=== PATIENT | female | born 1980 | race Caucasian/White ===

== ENCOUNTER 2017-04-11 22:04 | Emergency (ER) | payer BC, MEDICARE ==
[~2017-04-11] VITALS: Ht 160 cm; Wt 99.0 kg
[~2017-04-11 22:04] MED LIST: ALBU8I INH; CYCL-36 PO; FEXO180 PO; LORA-392 PO; LORTA5 PO; OMEP20TA PO; OXCA300 PO; PROM25TA5 PO; PROZ40CA PO; WELL150T PO
[2017-04-11 22:07] VITALS: BP 165/77; PULSE 111; RESP 16; TEMP 98.5; O2SAT 100
[2017-04-11] MEDS ORDERED: MELO-1 PO (22:43)
[2017-04-11] MEDS ORDERED: CYMB60CA PO (22:43)
[2017-04-11] MEDS ORDERED: DIVA500T PO (22:43)
[2017-04-11] MEDS ORDERED: OMEP20TA PO (22:43)
[2017-04-11] MEDS ORDERED: MORPHINE SULFATE 4 MG/ML INJ IV PUSH ONE (22:45)
[2017-04-11] MEDS ORDERED: KETOROLAC TROMETHAMINE 30 MG/ML (IVP) VIAL IVP ONE (22:45)
[2017-04-11] MEDS ORDERED: ONDANSETRON HCL 4 MG/2 ML VIAL IVP ONE (22:45)
--- NOTE | 2017-04-11 22:50 | PD ---
HPI Chief Complaint: Abdominal Pain Time Seen by Provider: 22:35 Travel History International Travel<30 days: No Contact w/Intl Traveler<30days: No Traveled to known affect area: No History of Present Illness HPI 36-year-old female complains of abdominal pain and left flank pain. Patient states that the pain started 5 days ago. Patient states that the pain was intermittent cramping pain and sharp pain and is worse today. Patient states that the pain radiates to the left side of the abdomen. Patient states that she has nausea with the pain. Patient denies any vomiting or diarrhea. Patient denies any dysuria or frequency. Patient denies any vaginal discharge. Patient states that her menstruation period started early this time. Patient has history of irregular menstruation period in the past. Patient status post cholecystectomy 2 years ago. Patient has history kidney stone 8 years ago. On a scale of 1-10 the pain is a 6 PFSH Past Medical History Asthma: Yes Anxiety: Yes Depression: Yes Cancer: No Cardiovascular Problems: No Diabetes: No Endocrine: No Fibromyalgia: Yes Gastrointestinal Disorders: Yes (GERD, DIVERTICULOSIS) Genitourinary: No Hepatitis: No Hiatal Hernia: No Immune Disorder: No Musculoskeletal: Yes (ANKYLOSINGSPONDILITIS) Neurologic: Yes (2 HERNIATED DISC) Psychiatric: Yes (DEPRESSION, ANXIETY, BIPOLAR) Reproductive: Yes (PCOS) Respiratory: Yes (ASTHMA) Thyroid Disease: No Tetanus Vaccination: > 5 Years Influenza Vaccination: No ?: Not LMP: 04/08/17 Past Surgical History Abdominal Surgery: No AICD: No Cardiac Surgery: No Ear Surgery: No Endocrine Surgery: No Eye Surgery: No Genitourinary Surgery: No Gynecologic Surgery: No Joint Replacement: No Oral Surgery: Yes (WISDOM TEETH REMOVED) Pacemaker: No Thoracic Surgery: No Social History Alcohol Use: Yes (OCC) Tobacco Use: No Substance Use: No Allergies-Medications (Allergen,Severity, Reaction): Coded Allergies: No Known Allergies (Verified , 04/11/17) Reported Meds & Prescriptions Reported Meds & Active Scripts Active Reported Lorazepam 1 Mg Tab 1 Mg PO BID PRN Cymbalta DR (Duloxetine HCl) 60 Mg Capdr 60 Mg PO DAILY Omeprazole 20 Mg Tab 20 Mg PO DAILY Divalproex DR (Divalproex Sodium) 500 Mg Tabdr 750 Mg PO DAILY Meloxicam 15 Mg Tab 15 Mg PO DAILY Review of Systems General / Constitutional: No: Fever Eyes: No: Visual changes HENT: No: Headaches Cardiovascular: No: Chest Pain or Discomfort Respiratory: No: Shortness of Breath Gastrointestinal: Positive: Nausea, Abdominal Pain Genitourinary: No: Dysuria Musculoskeletal: No: Pain Skin: No Rash Neurologic: No: Weakness Psychiatric: No: Depression Endocrine: No: Polydipsia Hematologic/Lymphatic: No: Easy Bruising Physical Exam Narrative GENERAL: Well-nourished, well-developed patient. SKIN: Focused skin assessment warm/dry. HEAD: Normocephalic. EYES: No scleral icterus. No injection or drainage. NECK: Supple, trachea midline. No JVD or lymphadenopathy. CARDIOVASCULAR: Regular rate and rhythm without murmurs, gallops, or rubs. RESPIRATORY: Breath sounds equal bilaterally. No accessory muscle use. GASTROINTESTINAL: Abdomen soft, nondistended. Patient has mild to moderate tenderness on palpation left upper quadrant of the abdomen. No rebound tenderness. No mass. MUSCULOSKELETAL: No cyanosis, or edema. BACK: Nontender without obvious deformity. No CVA tenderness. Neurologic exam normal. Data Data Last Documented VS Vital Signs Date Time Temp Pulse Resp B/P Pulse Ox O2 Delivery O2 Flow Rate FiO2 04/12/17 01:02 18 04/12/17 00:59 100 Room Air 04/11/17 22:07 98.5 111 165/77 Orders Complete Blood Count With Diff (04/11/17 22:40) Comprehensive Metabolic Panel (04/11/17 22:40) Urinalysis - C+S If Indicated (04/11/17 22:40) Ct Abd/Pel W/O Iv Contrast (04/11/17 22:40) Iv Access Insert/Monitor (04/11/17 22:40) Ecg Monitoring (04/11/17 22:40) Oximetry (04/11/17 22:40) Morphine Inj (Morphine Inj) (04/11/17 22:45) Ondansetron Inj (Zofran Inj) (04/11/17 22:45) Ketorolac Inj (Toradol Inj) (04/11/17 22:45) Ed Urine Pregnancytest Poc (04/11/17 22:45) Labs Laboratory Tests Test 04/11/17 04/12/17 23:05 02:40 White Blood Count 8.4 TH/MM3 Red Blood Count 4.30 MIL/MM3 Hemoglobin 9.9 GM/DL Hematocrit 31.2 % Mean Corpuscular Volume 72.6 FL Mean Corpuscular Hemoglobin 23.0 PG Mean Corpuscular Hemoglobin 31.6 % Concent Red Cell Distribution Width 15.9 % Platelet Count 337 TH/MM3 Mean Platelet Volume 8.7 FL Neutrophils (%) (Auto) 62.6 % Lymphocytes (%) (Auto) 26.8 % Monocytes (%) (Auto) 8.9 % Eosinophils (%) (Auto) 1.2 % Basophils (%) (Auto) 0.5 % Neutrophils # (Auto) 5.2 TH/MM3 Lymphocytes # (Auto) 2.2 TH/MM3 Monocytes # (Auto) 0.7 TH/MM3 Eosinophils # (Auto) 0.1 TH/MM3 Basophils # (Auto) 0.0 TH/MM3 CBC Comment DIFF FINAL Differential Comment Sodium Level 141 MEQ/L Potassium Level 3.9 MEQ/L Chloride Level 103 MEQ/L Carbon Dioxide Level 29.3 MEQ/L Anion Gap 9 MEQ/L Blood Urea Nitrogen 10 MG/DL Creatinine 0.85 MG/DL Estimat Glomerular Filtration 75 ML/MIN Rate Random Glucose 89 MG/DL Calcium Level 8.4 MG/DL Total Bilirubin 0.2 MG/DL Aspartate Amino Transf 11 U/L (AST/SGOT) Alanine Aminotransferase 18 U/L (ALT/SGPT) Alkaline Phosphatase 113 U/L Total Protein 7.3 GM/DL Albumin 3.1 GM/DL Urine Color YELLOW Urine Turbidity HAZY Urine pH 6.5 Urine Specific [place] 1.013 Urine Protein TRACE mg/dL Urine Glucose (UA) NEG mg/dL Urine Ketones NEG mg/dL Urine Occult Blood LARGE Urine Nitrite NEG Urine Bilirubin NEG Urine Urobilinogen LESS THAN 2.0 MG/DL Urine Leukocyte Esterase NEG Urine RBC 1 /hpf Urine WBC 2 /hpf Urine Squamous Epithelial 4 /hpf Cells Urine Bacteria OCC /hpf Urine Mucus FEW /lpf Microscopic Urinalysis Comment CULT NOT INDICATED MDM Medical Decision Making Medical Screen Exam Complete: Yes Emergency Medical Condition: Yes Interpretation(s) Last Impressions Abdomen/Pelvis CT 04/11/17 2240 Signed Impressions: Service Date/Time: Friday, April 12, 2017 01:19 - CONCLUSION: Essentially unremarkable study except for tiny amount of fluid in the cul-de-sac and stool throughout the colon. Silvia Moore MD 2:11 AM. CBC within normal limit. CMP within normal limit. 3:09 AM. UA is negative. Differential Diagnosis Differential diagnosis including musculoskeletal, nephrolithiasis, pyelonephritis, colitis, PUD, pancreatitis, Narrative Course 36-year-old female complains of left flank pain and left upper quadrant abdominal pain. Toradol 30 mg IV. Morphine 2 mg IV. Zofran 4 mg IV. Diagnosis Primary Impression: Left flank pain Patient Instructions: General Instructions Additional Instructions: Take medication as directed for pain. Follow-up with personal physician. Return if persistent problem or worse. Med/Other Pt SpecificInfo: Prescription(s) given Scripts Dicyclomine (Bentyl)10 Mg Cap10 Mg PO TID PRN (PAIN SCALE 1 TO 10) #21 CAP Ref 0 Prov:Alex Bello MD 04/12/17 Sucralfate (Carafate)1 Gm Tab1 Gm PO QID #120 TAB Ref 0 On empty stomach Prov:Alex Bello MD 04/12/17 Disposition: 01 DISCHARGE HOME Condition: Stable Alex Bello MD Apr 11, 2017 22:50
[2017-04-11] MEDS ORDERED: LORA1TAB12 PO (23:30)
[2017-04-11 23:50] LABS: AUTOMATED NEUTROPHIL # 5.2 TH/MM3 (1.8-7.7); BASOPHIL % 0.5 % (0.0-2.0); EOSINOPHIL # 0.1 TH/MM3 (0-0.4); EOSINOPHIL % 1.2 % (0.0-4.0); HEMATOCRIT 31.2 % (35.0-46.0); HEMO FLAGS DIFF FINAL; LYMPH % 26.8 % (9.0-44.0); LYMPHOCYTE # 2.2 TH/MM3 (1.0-4.8); MEAN CELL VOLUME 72.6 FL (80.0-100.0); MEAN CORPUSCULAR HGB CONC 31.6 % (32.0-36.0); MONO % 8.9 % (0.0-8.0); NEUT % 62.6 % (16.0-70.0); PLATELET COUNT 337 TH/MM3 (150-450); RED CELL DISTRIBUTION WIDTH 15.9 % (11.6-17.2); WHITE BLOOD COUNT 8.4 TH/MM3 (4.0-11.0)
[2017-04-12 00:28] LABS: ALT (GPT) 18 U/L (10-53); ANION GAP 9 MEQ/L (5-15); AST (GOT) 11 U/L (15-37); BICARBONATE 29.3 MEQ/L (21.0-32.0); BLOOD UREA NITROGEN 10 MG/DL (7-18); CHLORIDE 103 MEQ/L (98-107); GLOMERULAR FILTRATION RATE 75 ML/MIN (>89); POTASSIUM 3.9 MEQ/L (3.5-5.1); SODIUM (NA) 141 MEQ/L (136-145)
[2017-04-12 00:31] LABS: ALKALINE PHOSPHATASE 113 U/L (45-117); TOTAL BILIRUBIN ADULT 0.2 MG/DL (0.2-1.0)
[2017-04-12 00:59] VITALS: O2SAT 100
--- NOTE | 2017-04-12 01:33 | RADRPT ---
EXAM DATE/TIME: 04/12/2017 01:19 [place] COMPARISON: No previous studies available for comparison. INDICATIONS : Left flank pain with nausea past 5 days. ORAL CONTRAST: No oral contrast ingested. RADIATION DOSE: 30.70 CTDIvol (mGy) MEDICAL HISTORY : Gastroesophageal reflux disease. Renal calculi. Diverticulosis. SURGICAL HISTORY : None. ENCOUNTER: Initial ACUITY: 4 - 6 days PAIN SCALE: 6/10 LOCATION: Left flank TECHNIQUE: Volumetric scanning of the abdomen and pelvis was performed. Using automated exposure control and adjustment of the mA and/or kV according to patient size, radiation dose was kept as low as reasonably achievable to obtain optimal diagnostic quality images. FINDINGS: CT Abdomen: The liver, spleen, pancreas, kidneys, adrenals are unremarkable. There is no evidence for any appreciable pathological adenopathy, free fluid, or bowel obstruction. There is evidence for pr ior cholecystectomy. There is no evidence for any stones in the kidneys or the course of the ureters on either side. There is no hydronephrosis. Slight degree of somewhat linear irregular opacity is see n in the left lung base mostly consistent with scarring. CT pelvis: There is no evidence for mass, abscess formation, or any significant adenopathy within the pelvis. There is moderate amount of stool throughout the colon. Tiny amount of fluid is present in t he cul-de-sac. CONCLUSION: Essentially unremarkable study except for tiny amount of fluid in the cul-de-sac and stool throughout the colon. Silvia Moore MD on April 12, 2017 at 1:28 Board Certified Radiologist. This report was verified electronically.
[2017-04-12 02:55] LABS: BACTERIA, URINE OCC /hpf; BLOOD, URINE LARGE (NEG); COMMENT (UR) CULT NOT INDICATED; CULTURE IF INDICATED CULT NOT INDICATED; GLUCOSE,URINE NEG (NEG); KETONE, URINE NEG (NEG); MUCUS URINE FEW /lpf (OCC); NITRITE,URINE NEG (NEG); PH, URINE 6.5 (5.0-8.5); SQUAMOUS EPITHELIAL CELL URINE 4 /hpf (0-5); URINE COLOR YELLOW (YELLW/STRAW)
[2017-04-12 03:13] VITALS: BP 143/63; PULSE 90; RESP 18; TEMP 98.1; O2SAT 100
[2017-04-12] MEDS ORDERED: CARA1TAB6 PO (03:14)
[2017-04-12] MEDS ORDERED: DICY10 PO (03:14)
== END 2017-04-12 03:31 | disposition home or self-care (01) ==
LOC: NEPE 22:04
DX: R10.9 Unspecified abdominal pain (principal)
CPT/HCPCS: 74176; 80053; 81001; 84703; 85025; 96374; 96375; 99285; J1885; J2270; J2405

== ENCOUNTER 2018-04-05 22:25 | Inpatient (IN) | payer MEDICARE ==
[~2018-04-05] VITALS: Ht 161.3 cm; Wt 119.6 kg
[~2018-04-05 22:25] MED LIST changes: -ALBU8I INH; +CARA1TAB6 PO; -CYCL-36 PO; +CYMB60CA PO; +DICY10 PO; +DIVA500T PO; -FEXO180 PO; -LORA-392 PO; +LORA1TAB12 PO; -LORTA5 PO; +MELO15TA20 PO; -OMEP20TA PO; +OMEP20TA93 PO; -OXCA300 PO; -PROM25TA5 PO; -PROZ40CA PO; -WELL150T PO
[2018-04-05 22:31] VITALS: BP 134/59; PULSE 114; RESP 15; TEMP 98.6; O2SAT 97
[2018-04-05] MEDS ORDERED: SODIUM CHLOR 0.9% 1000 ML INJ 1,000 ML IV ONE (22:34)
[2018-04-05] MEDS ORDERED: CLON.5 PO (22:37)
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
[2018-04-05] MEDS ORDERED: SODIUM CHLORIDE 0.9% FLUSH 10 ML FLUSH IVF PRN (22:45)
--- NOTE | 2018-04-05 22:51 | RADRPT ---
EXAM DATE: 04/05/2018 10:49 PM EDT AGE/SEX: 37 years / Female INDICATIONS: SOB. Overdose. CLINICAL DATA: This is the patient's initial encounter. Patient reports that signs and symptoms have been present for 1 day and indicates a pain score of 0/10. MEDICAL/SURGICAL HISTORY: None. None. COMPARISON: [facility] – [place], [place], [place]ST SINGLE [place], 01/17/2015. . FINDINGS: Lungs are hypoaerated but otherwise clear. Heart and mediastinal structures are unremarkable. Osseous structures are intact. CONCLUSION: No evidence of acute cardiopulmonary process. Electronically signed by: Murtaza Mcdonald MD 04/05/2018 10:50 PM EDT
[2018-04-05 22:56] VITALS: O2SAT 100
[2018-04-05 23:00] LABS: AUTOMATED NEUTROPHIL # 5.9 TH/MM3 (1.8-7.7); BASOPHIL # 0.1 TH/MM3 (0-0.2); BASOPHIL % 0.5 % (0.0-2.0); EOSINOPHIL # 0.2 TH/MM3 (0-0.4); EOSINOPHIL % 1.5 % (0.0-4.0); HEMATOCRIT 35.8 % (35.0-46.0); HEMOGLOBIN 11.7 GM/DL (11.6-15.3); LYMPH % 35.2 % (9.0-44.0); LYMPHOCYTE # 3.9 TH/MM3 (1.0-4.8); MEAN CELL VOLUME 78.9 FL (80.0-100.0); MEAN CORPUSCULAR HEMOGLOBIN 25.9 PG (27.0-34.0); MEAN CORPUSCULAR HGB CONC 32.8 % (32.0-36.0); MEAN PLATELET VOLUME 8.4 FL (7.0-11.0); MONO % 8.9 % (0.0-8.0); NEUT % 53.9 % (16.0-70.0); PLATELET COUNT 369 TH/MM3 (150-450); RED BLOOD COUNT 4.53 MIL/MM3 (4.00-5.30); RED CELL DISTRIBUTION WIDTH 15.5 % (11.6-17.2)
[2018-04-05] MEDS ORDERED: ONDANSETRON HCL 4 MG/2 ML VIAL IV ONE (23:00)
[2018-04-05] MEDS ORDERED: ONDANSETRON ODT 4 MG TAB PO ONE (23:00)
[2018-04-05 23:17] LABS: INTERNATIONAL NORMALIZED RATIO 0.9 RATIO; PROTHROMBIN TIME - PATIENT 9.5 SEC (9.8-11.6)
[2018-04-05] MEDS ORDERED: PROCHLORPERAZINE INJ 10 MG/2 ML VIAL IV PUSH ONE (23:30)
[2018-04-05 23:34] LABS: ACETAMINOPHEN LESS THAN 2.0 MCG/ML (10.0-30.0); ALBUMIN 3.2 GM/DL (3.4-5.0); ALKALINE PHOSPHATASE 114 U/L (45-117); ALT (GPT) 30 U/L (10-53); AST (GOT) 20 U/L (15-37); BICARBONATE 25.3 MEQ/L (21.0-32.0); BLOOD UREA NITROGEN 7 MG/DL (7-18); CALCIUM 8.4 MG/DL (8.5-10.1); CHLORIDE 107 MEQ/L (98-107); CREATININE 0.87 MG/DL (0.50-1.00); GLOMERULAR FILTRATION RATE 73 ML/MIN (>89); GLUCOSE,RANDOM 137 MG/DL (74-106); SODIUM (NA) 143 MEQ/L (136-145); TOTAL BILIRUBIN ADULT 0.1 MG/DL (0.2-1.0); TOTAL PROTEIN 7.5 GM/DL (6.4-8.2)
[2018-04-06] VITALS (7 sets, daily range): BP systolic 100–144; BP diastolic 51–76; PULSE 62–110; RESP 16–19; TEMP 97.8–98.2; O2SAT 96–100
[2018-04-06 00:31] LABS: BILIRUBIN, URINE NEG (NEG); BLOOD, URINE NEG (NEG); GLUCOSE,URINE NEG (NEG); KETONE, URINE TRACE mg/dL (NEG); MUCUS URINE FEW /lpf (OCC); NITRITE,URINE NEG (NEG); PH, URINE 5.5 (5.0-8.5); SQUAMOUS EPITHELIAL CELL URINE 2 /hpf (0-5); URINE COLOR YELLOW (YELLW/STRAW); URINE LEUKOCYTE ESTERASE MOD (NEG)
[2018-04-06] MEDS ORDERED: SODIUM CHLOR 0.9% 1000 ML INJ 1,000 ML IV ONE (01:15)
[2018-04-06] MEDS ORDERED: MAGNESIUM HYDROXIDE SUSP 30 ML CUP PO PRN (08:00)
[2018-04-06] MEDS ORDERED: LORazepam 2 MG/ML VIAL IM PRN (08:00)
[2018-04-06] MEDS ORDERED: ALUMINUM/MAGNESIUM/SIMETH 30 ML CUP PO PRN (08:00)
[2018-04-06] MEDS ORDERED: BENZTROPINE MESYLATE 2 MG/2 ML VIAL IM PRN (08:00)
[2018-04-06] MEDS ORDERED: NICOTINE 21 MG/24 HR PATCH T-DERMAL PRN (08:00)
[2018-04-06] MEDS ORDERED: BENZTROPINE MESYLATE 1 MG TAB PO PRN (08:00)
[2018-04-06] MEDS ORDERED: ACETAMINOPHEN 325 MG TAB PO PRN (08:00)
[2018-04-06] MEDS ORDERED: LORazepam 1 MG TAB PO PRN (08:00)
[2018-04-06] MEDS ORDERED: diphenhydrAMINE HCL 50 MG CAP PO PRN (08:00)
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
--- NOTE | 2018-04-06 08:06 | EKG ---
Date Performed: 04/05/2018 Time Performed: 22:39:26 PTAGE: 37 years EKG: SINUS TACHYCARDIA NONSPECIFIC ST & T-WAVE ABNORMALITY ABNORMAL RHYTHM ECG PREVIOUS TRACING : 01/17/2015 08.03 No significant change from previous tracing noted. DOCTOR: Eugene Lazcano Interpretating Date/Time 04/06/2018 08:04:39
[2018-04-06] MEDS: DULoxetine HCl DR 60 MG CAP PO SCH (08:55)
[2018-04-06] MEDS: DIVALPROEX SODIUM E.R. 500 MG TAB PO SCH (08:56)
[2018-04-06] MEDS ORDERED: PANTOPRAZOLE SOD 20 MG DELAYED RELEASE TAB PO SCH (09:00)
[2018-04-06] MEDS ORDERED: FOLIC ACID 1 MG TAB PO ONE (09:30)
[2018-04-06] MEDS ORDERED: MULTIVITAMIN TAB PO ONE (09:30)
[2018-04-06] MEDS ORDERED: cloNIDine HCL 0.1 MG TAB PO PRN (09:30)
[2018-04-06] MEDS ORDERED: THIAMINE HCL 100 MG TAB PO ONE (09:30)
[2018-04-06] MEDS ORDERED: PANTOPRAZOLE SOD 20 MG DELAYED RELEASE TAB PO ONE (09:30)
--- NOTE | 2018-04-06 10:42 | PD.CONS ---
HPI Service [facility] Hospitalists Consult Requested By Psychiatry Reason for Consult Help with medical management of overdose Primary Care Physician Ang Booth M.D. Diagnoses: History of Present Illness We have been asked to consult on this 37-year-old female patient who presented to [facility] emergency department after taking 6 tablets of 0.5 mg clonazepam this evening as well as drinking a bottle of rum. Patient was Lawson acted as she wrote a note about how she would want to be cremated if she . Patient has a history of bipolar disorder. She has been having issues with her sister and has history of attempted suicide in the past and bipolar disorder. Patient was noted to have alcohol in her system as well as clonazepam Patient has been Lawson acted here Review of Systems Constitutional: DENIES: Diaphoretic episodes, Fatigue, Fever, Weight gain, Weight loss, Chills, Dizziness, Change in appetite, Night Sweats Endocrine: DENIES: Abnorml menstrual pattern, Heat/cold intolerance, Polydipsia , Polyuria, Polyphagia Eyes: DENIES: Blurred vision, Diplopia, Eye inflammation, Eye pain, Vision loss , Photosensitivity, Double Vision Ears, nose, mouth, throat: DENIES: Tinnitus, Hearing loss, Vertigo, Nasal discharge, Oral lesions, Throat pain, Hoarseness, Ear Pain, Running Nose, Epistaxis, Sinus Pain, Toothache, Odynophagia Respiratory: DENIES: Apneas, Cough, Snoring, Wheezing, Hemoptysis, Sputum production, Shortness of breath Cardiovascular: DENIES: Chest pain, Palpitations, Syncope, Dyspnea on Exertion , PND, Lower Extremity Edema, Orthopnea, Claudication Gastrointestinal: DENIES: Abdominal pain, Black stools, Bloody stools, Constipation, Diarrhea, Nausea, Vomiting, Difficulty Swallowing Genitourinary: DENIES: Abnormal vaginal bleeding, Dysmenorrhea, Dyspareunia, Sexual dysfunction, Urinary frequency, Urinary incontinence, Urgency, Hematuria Musculoskeletal: DENIES: Joint pain, Muscle aches, Stiffness, Joint Swelling, Back pain, Neck pain Integumentary: DENIES: Abnormal pigmentation, Pruritus, Rash, Nail changes, Breast masses, Breast skin changes Hematologic/lymphatic: DENIES: Bruising, Lymphadenopathy Immunologic/allergic: DENIES: Eczema, Urticaria Neurologic: DENIES: Abnormal gait, Headache, Localized weakness, Paresthesias, Seizures, Speech Problems, Tremor, Poor Balance Psychiatric: COMPLAINS OF: Anxiety, Mood changes, Depression, Suicidal Ideation , DENIES: Confusion, Hallucinations, Agitation Except as stated in HPI: all other systems reviewed are Neg Past Family Social History Allergies: Coded Allergies: No Known Allergies (Verified Allergy, Unknown, 04/06/18) Past Medical History Bipolar disorder, depression, anxiety GERD Diverticulosis PCOS Fibromyalgia Morbid obesity Ankylosing spondylitis Chronic back pain Osteoarthritis Asthma Past Surgical History Cholecystectomy [place] teeth removal Reported Medications Reported Meds & Active Scripts Active Reported Klonopin (Clonazepam) 0.5 Mg Tab 0.5 Mg PO BID Active Ordered Medications Current Medications Sodium Chloride (NS Flush) 2 ml UNSCH PRN IVF FLUSH AFTER USING IV ACCESS; Start 04/05/18 at 22:45 Sodium Chloride 1,000 ml @ 1,000 mls/hr Q1H ONCE IV Last administered on at 23:04; Start 04/05/18 at 22:34; Stop 04/05/18 at 23:33; Status DC Ondansetron HCl (Zofran Inj) 4 mg ONCE ONCE IV ; Start 04/05/18 at 23:00; Stop 04/05/18 at 23:00; Status DC Ondansetron HCl (Zofran Odt) 4 mg ONCE ONCE PO Last administered on at 23:03; Start 04/05/18 at 23:00; Stop 04/05/18 at 23:01; Status DC Prochlorperazine Edisylate (Compazine Inj) 5 mg ONCE ONCE IV PUSH Last administered on 04/05/18at 23:27; Start 04/05/18 at 23:30; Stop 04/05/18 at 23:31 ; Status DC Sodium Chloride 1,000 ml @ 1,000 mls/hr Q1H ONCE IV Last administered on at 01:34; Start 04/06/18 at 01:15; Stop 04/06/18 at 02:14; Status DC Lorazepam (Ativan) 0.5 mg Q6H PRN PO MODERATE TO SEVERE ANXIETY; Start at 08:00 Lorazepam (Ativan Inj) 0.5 mg Q6H PRN IM MODERATE TO SEVERE ANXIETY; Start at 08:00 Diphenhydramine HCl (Benadryl) 50 mg HS PRN PO INSOMNIA; Start 04/06/18 at 08: 00 Acetaminophen (Tylenol) 650 mg Q4H PRN PO Pain 1-5 or Temp >101F; Start at 08:00 Magnesium Hydroxide (Milk Of Magnesia Liq) 30 ml DAILY PRN PO CONSTIPATION; Start 04/06/18 at 08:00 Al Hydrox/Mg Hydrox/Simethicone (Mag-Al Plus Susp Liq) 30 ml Q6H PRN PO DYSPEPSIA; Start 04/06/18 at 08:00 Nicotine (Habitrol 21 Mg Patch.24 Hr) 1 patch DAILY PRN T-DERMAL Nicotine craving; Start 04/06/18 at 08:00 Benztropine Mesylate (Cogentin) 1 mg Q12H PRN PO EXTRA PYRAMIDAL SYMPTOMS; Start 04/06/18 at 08:00 Benztropine Mesylate (Cogentin Inj) 1 mg Q12H PRN IM EXTRA PYRAMIDAL SYMPTOMS; Start 04/06/18 at 08:00 Divalproex Sodium (Depakote Er) 1,500 mg DAILY PO Last administered on at 08:56; Start 04/06/18 at 09:00 Duloxetine HCl (Cymbalta Dr) 120 mg DAILY PO Last administered on 04/06/18at 08: 55; Start 04/06/18 at 09:00 Pantoprazole Sodium (Protonix) 20 mg DAILY PO Last administered on 04/06/18at 08 :55; Start 04/06/18 at 09:00; Stop 04/06/18 at 09:22; Status DC Pantoprazole Sodium (Protonix) 20 mg ONCE ONCE PO Last administered on at 10:17; Start 04/06/18 at 09:30; Stop 04/06/18 at 09:31; Status DC Pantoprazole Sodium (Protonix) 40 mg DAILY PO ; Start 04/07/18 at 09:00 Multivitamins (Theragran) 1 tab ONCE ONCE PO Last administered on 04/06/18at 10 :16; Start 04/06/18 at 09:30; Stop 04/06/18 at 09:31; Status DC Multivitamins (Theragran) 1 tab DAILY PO ; Start 04/07/18 at 09:00 Thiamine HCl (Vitamin B1) 100 mg ONCE ONCE PO Last administered on 04/06/18at 10:16; Start 04/06/18 at 09:30; Stop 04/06/18 at 09:31; Status DC Thiamine HCl (Vitamin B1) 100 mg DAILY PO ; Start 04/07/18 at 09:00 Folic Acid (Folate) 1 mg ONCE ONCE PO Last administered on 04/06/18at 10:17; Start 04/06/18 at 09:30; Stop 04/06/18 at 09:31; Status DC Folic Acid (Folate) 1 mg DAILY PO ; Start 04/07/18 at 09:00 Clonidine (Catapres) 0.1 mg Q4H PRN PO SBP>160, DBP>90; Start 04/06/18 at 09:30 Family History Sister with history of bipolar Social History Denies any tobacco Denies any illicits Denies any alcohol other than what she had last night Physical Exam Vital Signs Vital Signs Date Time Temp Pulse Resp B/P (MAP) Pulse Ox O2 Delivery O2 Flow Rate FiO2 04/06/18 09:07 04/06/18 05:41 62 16 111/76 (88) 100 Room Air 04/06/18 02:55 92 16 101/51 (68) 98 Nasal Cannula 2.00 04/06/18 01:26 19 98 BiPAP 04/06/18 01:22 67 16 100/51 (67) 98 Nasal Cannula 2.00 04/06/18 00:23 110 16 106/71 (83) 96 Nasal Cannula 2.00 04/05/18 22:56 100 Nasal Cannula 2.00 04/05/18 22:31 98.6 114 15 134/59 (84) 97 Physical Exam GENERAL: This is a well-nourished, well-developed patient, in no apparent distress. SKIN: No rashes, ecchymoses or lesions. Cool and dry. HEAD: Atraumatic. Normocephalic. No temporal or scalp tenderness. EYES: Pupils equal round and reactive. Extraocular motions intact. No scleral icterus. No injection or drainage. ENT: Nose without bleeding, purulent drainage or septal hematoma. Throat without erythema, tonsillar hypertrophy or exudate. Uvula midline. Airway patent. NECK: Trachea midline. No JVD or lymphadenopathy. Supple, nontender, no meningeal signs. CARDIOVASCULAR: Regular rate and rhythm without murmurs, gallops, or rubs. RESPIRATORY: Clear to auscultation. Breath sounds equal bilaterally. No wheezes , rales, or rhonchi. GASTROINTESTINAL: Abdomen soft, non-tender, nondistended. No hepato-splenomegaly , or palpable masses. No guarding. Morbidly obese MUSCULOSKELETAL: Extremities without clubbing, cyanosis, or edema. No joint tenderness, effusion, or edema noted. No calf tenderness. Negative Homans sign bilaterally. NEUROLOGICAL: Awake and alert. Cranial nerves II through XII intact. Motor and sensory grossly within normal limits. Five out of 5 muscle strength in all muscle groups. Normal speech. Laboratory Laboratory Tests Test 04/05/18 22:40 04/06/18 00:10 04/06/18 05:45 White Blood Count 11.0 Red Blood Count 4.53 Hemoglobin 11.7 Hematocrit 35.8 Mean Corpuscular Volume 78.9 Mean Corpuscular Hemoglobin 25.9 Mean Corpuscular Hemoglobin Concent 32.8 Red Cell Distribution Width 15.5 Platelet Count 369 Mean Platelet Volume 8.4 Neutrophils (%) (Auto) 53.9 Lymphocytes (%) (Auto) 35.2 Monocytes (%) (Auto) 8.9 Eosinophils (%) (Auto) 1.5 Basophils (%) (Auto) 0.5 Neutrophils # (Auto) 5.9 Lymphocytes # (Auto) 3.9 Monocytes # (Auto) 1.0 Eosinophils # (Auto) 0.2 Basophils # (Auto) 0.1 CBC Comment DIFF FINAL Differential Comment Prothrombin Time 9.5 Prothromb Time International Ratio 0.9 Activated Partial Thromboplast Time 21.5 Blood Urea Nitrogen 7 Creatinine 0.87 Random Glucose 137 Total Protein 7.5 Albumin 3.2 Calcium Level 8.4 Alkaline Phosphatase 114 Aspartate Amino Transf (AST/SGOT) 20 Alanine Aminotransferase (ALT/SGPT) 30 Total Bilirubin 0.1 Sodium Level 143 Potassium Level 3.4 Chloride Level 107 Carbon Dioxide Level 25.3 Anion Gap 11 Estimat Glomerular Filtration Rate 73 Serum Osmolality 335 Thyroid Stimulating Hormone 3rd Gen 4.810 Salicylates Level LESS THAN 1.7 Acetaminophen Level LESS THAN 2.0 Valproic Acid (Depakene) Level 15 13 Ethyl Alcohol Level 153 Urine Color YELLOW Urine Turbidity CLEAR Urine pH 5.5 Urine Specific [place] 1.022 Urine Protein NEG Urine Glucose (UA) NEG Urine Ketones TRACE Urine Occult Blood NEG Urine Nitrite NEG Urine Bilirubin NEG Urine Urobilinogen LESS THAN 2.0 Urine Leukocyte Esterase MOD Urine RBC 1 Urine WBC 1 Urine Squamous Epithelial Cells 2 Urine Mucus FEW Microscopic Urinalysis Comment CULT NOT INDICATED Urine Osmolality 765 Urine Opiates Screen NEG Urine Barbiturates Screen NEG Urine Amphetamines Screen NEG Urine Benzodiazepines Screen NEG Urine Cocaine Screen NEG Urine Cannabinoids Screen NEG Result Diagram: 04/05/18223904/05/18 224 Imaging Last Impressions Chest X-Ray 04/05/182233 Signed Impressions: CONCLUSION: No evidence of acute cardiopulmonary process. Assessment and Plan Assessment and Plan Status post overdose with RUM and Klonopin and possible suicide attempt currently Lawson acted will defer to psych Bipolar disorder defer to psychiatry GERD continue on PPI Fibromyalgia try not to give any pain medications if able Morbid obesity weight loss recommended History of diverticulosis stable Currently Lawson acted Alcohol intoxication continue on multivitamin, thiamine, and folic acid History of asthma currently stable-denies any shortness of breath PCOS by history A.m. labs We will follow for any other issues for 1 day will more than likely sign off tomorrow Code Status Full code Discussed Condition With Psychiatric nurse Elgin Blum DO April 06, 2018 10:42
[2018-04-06] MEDS ORDERED: SYNT25TA PO (15:02)
[2018-04-07 06:11] VITALS: BP 116/60; PULSE 100; RESP 20; TEMP 98.1; O2SAT 99
[2018-04-07 06:23] VITALS: BP 116/60; PULSE 100; RESP 20; TEMP 98.1; O2SAT 99
[2018-04-07 07:18] LABS: AUTOMATED NEUTROPHIL # 3.6 TH/MM3 (1.8-7.7); BASOPHIL % 0.4 % (0.0-2.0); EOSINOPHIL # 0.2 TH/MM3 (0-0.4); EOSINOPHIL % 2.9 % (0.0-4.0); HEMATOCRIT 31.9 % (35.0-46.0); HEMOGLOBIN 10.5 GM/DL (11.6-15.3); LYMPH % 38.9 % (9.0-44.0); LYMPHOCYTE # 2.8 TH/MM3 (1.0-4.8); MEAN CELL VOLUME 79.2 FL (80.0-100.0); MEAN CORPUSCULAR HEMOGLOBIN 26.1 PG (27.0-34.0); MEAN CORPUSCULAR HGB CONC 32.9 % (32.0-36.0); MEAN PLATELET VOLUME 8.5 FL (7.0-11.0); MONO % 8.5 % (0.0-8.0); MONOCYTE # 0.6 TH/MM3 (0-0.9); NEUT % 49.3 % (16.0-70.0); PLATELET COUNT 305 TH/MM3 (150-450); RED BLOOD COUNT 4.02 MIL/MM3 (4.00-5.30); WHITE BLOOD COUNT 7.2 TH/MM3 (4.0-11.0)
[2018-04-07 07:46] LABS: ALBUMIN 2.7 GM/DL (3.4-5.0); AST (GOT) 14 U/L (15-37); BICARBONATE 29.4 MEQ/L (21.0-32.0); BLOOD UREA NITROGEN 9 MG/DL (7-18); CALCIUM 8.4 MG/DL (8.5-10.1); CHLORIDE 105 MEQ/L (98-107); CREATININE 0.89 MG/DL (0.50-1.00); GLOMERULAR FILTRATION RATE 71 ML/MIN (>89); GLUCOSE,RANDOM 99 MG/DL (74-106); MAGNESIUM 1.7 MG/DL (1.5-2.5); SODIUM (NA) 141 MEQ/L (136-145)
[2018-04-07 07:47] LABS: CHOLESTEROL 128 MG/DL (120-200); TRIGLYCERIDES 70 MG/DL (42-150)
[2018-04-07 07:52] LABS: ALKALINE PHOSPHATASE 100 U/L (45-117); ALT (GPT) 27 U/L (10-53); CHOLESTEROL/ HDL RATIO 2.61 RATIO; FREE T4 1.28 NG/DL (0.76-1.46); HDL CHOLESTEROL 48.9 MG/DL (40.0-60.0); LDL CHOLESTEROL 65 MG/DL (0-99); PHOSPHORUS 3.1 MG/DL (2.5-4.9); TOTAL BILIRUBIN ADULT 0.2 MG/DL (0.2-1.0); TOTAL PROTEIN 6.3 GM/DL (6.4-8.2)
[2018-04-07] MEDS: FOLIC ACID 1 MG TAB PO SCH (10:17)
[2018-04-07] MEDS: THIAMINE HCL 100 MG TAB PO SCH (10:17)
[2018-04-07] MEDS: PANTOPRAZOLE SOD 40 MG DELAYED RELEASE TAB PO SCH (10:17)
[2018-04-07] MEDS: DULoxetine HCl DR 60 MG CAP PO SCH (10:17)
[2018-04-07] MEDS: MULTIVITAMIN TAB PO SCH (10:18)
[2018-04-07] MEDS: DIVALPROEX SODIUM E.R. 500 MG TAB PO SCH (10:18)
--- NOTE | 2018-04-07 14:31 | HHI.PR ---
Subjective Remarks Follow-up visit for OD on Klonopin and rum. Spoke with nurse who does not report any acute concerns or events. Patient is seen and examined in the day room in no acute distress. She denies any fevers, chills, N/V/D, headache, dizziness, lightheadedness or chest pain. She is eating and drinking without difficulties. Upset stomach yesterday that has now resolved, she does not voice any acute concerns or complaints. Objective Vitals Vital Signs Date Time Temp Pulse Resp B/P (MAP) Pulse Ox O2 Delivery O2 Flow Rate FiO2 04/07/18 06:23 98.1 100 20 116/60 (78) 99 04/07/18 06:11 98.1 100 20 116/60 (78) 99 04/06/18 18:10 98.2 100 18 133/60 (84) 99 Result Diagram: 04/07/18 0640 04/07/18 0640 Imaging Last Impressions Chest X-Ray 04/05/184 Signed Impressions: CONCLUSION: No evidence of acute cardiopulmonary process. Objective Remarks GENERAL: This is a well-nourished, well-developed patient, in no apparent distress. SKIN: Cool and dry. HEAD: Atraumatic. Normocephalic. EYES: Pupils equal round. No scleral icterus. No injection or drainage. ENT: Nose without bleeding. Airway patent. NECK: Trachea midline. CARDIOVASCULAR: Regular rate and rhythm without murmurs, gallops, or rubs. RESPIRATORY: Clear to auscultation. Breath sounds equal bilaterally. No wheezes , rales, or rhonchi. GASTROINTESTINAL: Abdomen obese, no guarding. MUSCULOSKELETAL: Extremities without clubbing, cyanosis, or edema. NEUROLOGICAL: Awake and alert. Moving all extremities without difficulties. Normal speech. A/P Assessment and Plan Status post overdose with RUM and Klonopin and possible suicide attempt currently Lawson acted will defer to psych Bipolar disorder defer to psychiatry OD Klonopin -BA in place, treatment per psych -CBC stable, mild anemia, CMP stable GERD continue on PPI Fibromyalgia, stable. No complains of pain, Tylenol PRN Morbid obesity weight loss recommended Alcohol intoxication continue on multivitamin, thiamine, and folic acid Asthma-stable PCOS by history [id number] Discussed with nurse and patient. [facility] will sign off, please reconsult if needed. Elvin Knott April 07, 2018 14:31
[2018-04-07 16:27] LABS: HEMOGLOBIN A1C 5.6 % (4.3-6.0)
--- NOTE | 2018-04-07 18:41 | HHI.PYPN ---
Subjective Chief Complaint: Overdose, depression Remarks Patient seen for follow-up, chart reviewed. Discussion nursing staff reported the patient has been quite, pleasant, denies any suicide ideations. Patient was found in day room noted B, cooperative. Patient states that she has had previous multiple suicide attempts in the past and her stressors recently have included her father having 3 months ago, and being part of her sister's divorce and recent fight with her [id number]. Patient reports no difficulty with sleep, appetite, mood has been "good" denying suicide age today. Patient states that she regrets having attempted to hurt herself via overdose stating that it was "unfortunately". Patient denies any recent suicidal ideation last time being the day of the overdose. Patient denies any perceptual services or delusions. Patient reports having been visited by family and spoke to her mother and sister over the phone as well. Review of Systems Except as stated in HPI: all other systems reviewed are Neg Mental Status Examination Appearance: Appropriate Consciousness: Alert Orientation: x4 Motor Activity: Other (No motor abnormalities noted) Speech: Unremarkable Language: Adequate Fund of Knowledge: Adequate Attention and Concentration: Adequate Memory: Unremarkable (Grossly intact on clinical exam) Mood: Sad Affect: Sad Thought Process & Associations: Intact, Logical, Goal directed, Linear Thought Content: Appropriate Hallucination Type: None Delusion Type: None Suicidal Ideation: No Suicidal Plan: No Suicidal Intention: No Homicidal Ideation: No Homicidal Plan: No Homicidal Intention: No Insight: Fair Judgment: Impulsive Results Labs Labs reviewed Test 04/07/18 06:40 White Blood Count 7.2 TH/MM3 Red Blood Count 4.02 MIL/MM3 Hemoglobin 10.5 GM/DL Hematocrit 31.9 % Mean Corpuscular Volume 79.2 FL Mean Corpuscular Hemoglobin 26.1 PG Mean Corpuscular Hemoglobin Concent 32.9 % Red Cell Distribution Width 16.0 % Platelet Count 305 TH/MM3 Mean Platelet Volume 8.5 FL Neutrophils (%) (Auto) 49.3 % Lymphocytes (%) (Auto) 38.9 % Monocytes (%) (Auto) 8.5 % Eosinophils (%) (Auto) 2.9 % Basophils (%) (Auto) 0.4 % Neutrophils # (Auto) 3.6 TH/MM3 Lymphocytes # (Auto) 2.8 TH/MM3 Monocytes # (Auto) 0.6 TH/MM3 Eosinophils # (Auto) 0.2 TH/MM3 Basophils # (Auto) 0.0 TH/MM3 CBC Comment DIFF FINAL Differential Comment Blood Urea Nitrogen 9 MG/DL Creatinine 0.89 MG/DL Random Glucose 99 MG/DL Total Protein 6.3 GM/DL Albumin 2.7 GM/DL Calcium Level 8.4 MG/DL Phosphorus Level 3.1 MG/DL Magnesium Level 1.7 MG/DL Alkaline Phosphatase 100 U/L Aspartate Amino Transf (AST/SGOT) 14 U/L Alanine Aminotransferase (ALT/SGPT) 27 U/L Total Bilirubin 0.2 MG/DL Sodium Level 141 MEQ/L Potassium Level 4.1 MEQ/L Chloride Level 105 MEQ/L Carbon Dioxide Level 29.4 MEQ/L Anion Gap 7 MEQ/L Estimat Glomerular Filtration Rate 71 ML/MIN Triglycerides Level 70 MG/DL Cholesterol Level 128 MG/DL LDL Cholesterol 65 MG/DL HDL Cholesterol 48.9 MG/DL Cholesterol/HDL Ratio 2.61 RATIO Free Thyroxine 1.28 NG/DL Vitals/IOs Vital Signs Date Time Temp Pulse Resp B/P (MAP) Pulse Ox O2 Delivery O2 Flow Rate FiO2 04/07/18 06:23 98.1 100 20 116/60 (78) 99 04/06/18 05:41 Room Air 04/06/18 02:55 2.00 Intake and Output 04/07/18 04/07/18 04/08/18 08:00 16:00 00:00 Intake Total 240 ml 360 ml Balance 240 ml 360 ml Assessment & Plan Problem List: (1) Bipolar disorder, current episode depressed, severe, without psychotic features ICD Codes: F31.4 - Bipolar disorder, current episode depressed, severe, without psychotic features Assessment & Plan Patient continues to report feeling upset about recent suicide attempt, has been compliant with treatment, we will continue with current treatment and with subsequent valproic acid level when appropriate. Continue monitor mood and behavior. Discharge planning in progress. Justification for Cont. Inpt. At risk of further decompensation a lower level of care. Discharge Planning Patient return back to her residence was psychiatrically stable. Request HC Surrog/Guard Advoc?: King Vieyra MD April 07, 2018 18:41
[2018-04-08 06:32] VITALS: BP 148/75; PULSE 109; RESP 18; TEMP 97.8; O2SAT 99
[2018-04-08] MEDS: DULoxetine HCl DR 60 MG CAP PO SCH (09:06)
[2018-04-08] MEDS: PANTOPRAZOLE SOD 40 MG DELAYED RELEASE TAB PO SCH (09:06)
[2018-04-08] MEDS: FOLIC ACID 1 MG TAB PO SCH (09:07)
[2018-04-08] MEDS: MULTIVITAMIN TAB PO SCH (09:07)
[2018-04-08] MEDS: DIVALPROEX SODIUM E.R. 500 MG TAB PO SCH (09:07)
[2018-04-08] MEDS: THIAMINE HCL 100 MG TAB PO SCH (09:07)
[2018-04-08 17:52] VITALS: BP 118/50; PULSE 102; RESP 16; TEMP 98.4; O2SAT 98
[2018-04-09 06:43] VITALS: BP 148/73; PULSE 92; RESP 16; TEMP 97.6; O2SAT 98
[2018-04-09] MEDS: FOLIC ACID 1 MG TAB PO SCH (09:40)
[2018-04-09] MEDS: THIAMINE HCL 100 MG TAB PO SCH (09:40)
[2018-04-09] MEDS: MULTIVITAMIN TAB PO SCH (09:40)
[2018-04-09] MEDS: DULoxetine HCl DR 60 MG CAP PO SCH (09:40)
[2018-04-09] MEDS: PANTOPRAZOLE SOD 40 MG DELAYED RELEASE TAB PO SCH (09:41)
[2018-04-09] MEDS: DIVALPROEX SODIUM E.R. 500 MG TAB PO SCH (09:41)
--- NOTE | 2018-04-09 16:41 | HHI.PYPN ---
Subjective Chief Complaint: Overdose, depression Remarks Patient seen for follow, chart reviewed. Discussion nursing staff reported the patient cooperative, compliant with medications and participatory in groups. Patient was found to be, cooperative. Patient states her mood has been "good" feeling less depressed today no longer endorsing any suicide ideations. Patient states that she had visited with family which went well and comments that family feels that she is getting back to herself. Patient looks forward to continuing outpatient treatment especially in finding a therapist who she wishes to engage in. Patient noted to have slight tremor likely secondary to valproic acid. Patient denies any physical complaints and reports tolerating medications well. Review of Systems Except as stated in HPI: all other systems reviewed are Neg Mental Status Examination Appearance: Appropriate Consciousness: Alert Orientation: x4 Motor Activity: Other (No motor abnormalities noted) Speech: Unremarkable Language: Adequate Fund of Knowledge: Adequate Attention and Concentration: Adequate Memory: Unremarkable (Grossly intact on clinical exam) Mood: Appropriate Affect: Sad (Less so today) Thought Process & Associations: Intact, Logical, Goal directed, Linear Thought Content: Appropriate Hallucination Type: None Delusion Type: None Suicidal Ideation: No Suicidal Plan: No Suicidal Intention: No Homicidal Ideation: No Homicidal Plan: No Homicidal Intention: No Insight: Fair Judgment: Impulsive Results Vitals/IOs Vital Signs Date Time Temp Pulse Resp B/P (MAP) Pulse Ox O2 Delivery O2 Flow Rate FiO2 04/09/18 06:43 97.6 92 16 148/73 (98) 98 04/06/18 05:41 Room Air 04/06/18 02:55 2.00 Assessment & Plan Problem List: (1) Bipolar disorder, current episode depressed, severe, without psychotic features ICD Codes: F31.4 - Bipolar disorder, current episode depressed, severe, without psychotic features Assessment & Plan Patient appears to be improving with current treatment regimen, valproic acid level scheduled for tomorrow a.m. We will continue current treatment. Continue monitor mood and behavior. Patient likely for discharge tomorrow if patient continues to progress and maintain stable mood. This was planning a progress. Justification for Cont. Inpt. At risk for further decompensation if at lower level of care Discharge Planning Return back to her residence. Request HC Surrog/Guard Advoc?: No King Valdez MD April 09, 2018 16:41
[2018-04-09 17:47] VITALS: BP 152/77; PULSE 93; RESP 17; TEMP 97.7; O2SAT 98
[2018-04-10 05:24] VITALS: BP 137/79; PULSE 91; RESP 16; TEMP 97.8
[2018-04-10] MEDS: MULTIVITAMIN TAB PO SCH (09:05)
[2018-04-10] MEDS: PANTOPRAZOLE SOD 40 MG DELAYED RELEASE TAB PO SCH (09:05)
[2018-04-10] MEDS: FOLIC ACID 1 MG TAB PO SCH (09:05)
[2018-04-10] MEDS: DIVALPROEX SODIUM E.R. 500 MG TAB PO SCH (09:05)
[2018-04-10] MEDS: THIAMINE HCL 100 MG TAB PO SCH (09:06)
[2018-04-10] MEDS: DULoxetine HCl DR 60 MG CAP PO SCH (09:06)
[2018-04-10] MEDS ORDERED: THERTAB15 PO (15:04)
[2018-04-10] MEDS ORDERED: FOLI1TAB6 PO (15:04)
[2018-04-10] MEDS ORDERED: THIA100 PO (15:04)
[2018-04-10] MEDS ORDERED: DEPA500T3 PO (15:04)
[2018-04-10] MEDS ORDERED: DULO1CAP3 PO (15:04)
[2018-04-10] MEDS ORDERED: PANT40TA3 PO (15:04)
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
--- NOTE | 2018-04-11 22:25 | HHI.PYPN ---
Subjective Chief Complaint: Overdose, depression Remarks LATE ENTRY FOR 03/12/18 Patient seen for follow up; chart reviewed. Discussion with nursing staff reported that the patient was somewhat tearful yesterday. Patient was found ambulating on the unit, states feeling that she is getting better but had felt sad yesterday due to thinking about her recent discord in the family. Patient states tolerating medication well, noted to have had some tremor which she believes likely from the depakote but tolerable. She continues to deny any SI and is hopeful she will continue to improve. Review of Systems Except as stated in HPI: all other systems reviewed are Neg Mental Status Examination Appearance: Appropriate Consciousness: Alert Orientation: x4 Motor Activity: Other (No motor abnormalities noted) Speech: Unremarkable Language: Adequate Fund of Knowledge: Adequate Attention and Concentration: Adequate Memory: Unremarkable (Grossly intact on clinical exam) Mood: Sad Affect: Sad Thought Process & Associations: Intact, Logical, Goal directed, Linear Thought Content: Appropriate Hallucination Type: None Delusion Type: None Suicidal Ideation: No Suicidal Plan: No Suicidal Intention: No Homicidal Ideation: No Homicidal Plan: No Homicidal Intention: No Insight: Fair Judgment: Impulsive Results Vitals/IOs Vital Signs Date Time Temp Pulse Resp B/P (MAP) Pulse Ox O2 Delivery O2 Flow Rate FiO2 04/10/18 16:53 04/10/18 05:24 97.8 91 16 04/09/18 17:47 98 Assessment & Plan Problem List: (1) Bipolar disorder, current episode depressed, severe, without psychotic features ICD Codes: F31.4 - Bipolar disorder, current episode depressed, severe, without psychotic features Assessment & Plan Patient continues to feel depressed but improving, continues to deny SI. Slight tremor noted, likely secondary to the valproic acid but tolerable as per patient. Continue current treatment, continue to monitor mood and behavior. Discharge planning in progress. Justification for Cont. Inpt. At risk for further decompensation at lower level of care. Discharge Planning Return back to her residence. Request HC Surrog/Guard Advoc?: King iVeyra MD Apr 11, 2018 22:25
== END 2018-04-10 17:50 | disposition home or self-care (01) | DRG 885 ==
LOC: NEPE 22:25 → NEDA 04-06 07:47 → H260 04-06 09:15
PROVIDERS: ADMIT Student in an Organized Health Care Education/Training Program; ATTEND Student in an Organized Health Care Education/Training Program
DX: F31.4 Bipolar disorder, current episode depressed, severe, without psychotic features (principal); Z68.42 Body mass index [BMI] 45.0-49.9, adult; E66.01 Morbid (severe) obesity due to excess calories; E28.2 Polycystic ovarian syndrome; K21.9 Gastro-esophageal reflux disease without esophagitis; M45.9 Ankylosing spondylitis of unspecified sites in spine; G47.9 Sleep disorder, unspecified; M54.9 Dorsalgia, unspecified; K57.90 Diverticulosis of intestine, part unspecified, without perforation or abscess without bleeding; G89.29 Other chronic pain; M79.7 Fibromyalgia; F41.9 Anxiety disorder, unspecified; R47.81 Slurred speech; R11.10 Vomiting, unspecified; D72.821 Monocytosis (symptomatic); J45.909 Unspecified asthma, uncomplicated; T42.4X1A Poisoning by benzodiazepines, accidental (unintentional), initial encounter; M19.90 Unspecified osteoarthritis, unspecified site; D64.9 Anemia, unspecified; G25.1 Drug-induced tremor; T42.6X5A Adverse effect of other antiepileptic and sedative-hypnotic drugs, initial encounter; F10.129 Alcohol abuse with intoxication, unspecified; Y92.238 Other place in hospital as the place of occurrence of the external cause; Y90.6 Blood alcohol level of 120-199 mg/100 ml; Z91.14 Patient's other noncompliance with medication regimen; Z91.5 Personal history of self-harm
CPT/HCPCS: 71045; 80053; 80061; 80164; 80307; 81001; 82140; 83036; 83735; 83930; 83935; 84100; 84439; 84443; 84703; 85025; 85610; 85730; 93005; 96361; 96374; J0780; J7030